=== PATIENT | male | born 1955 | race Caucasian/White ===

== ENCOUNTER 2020-06-04 09:10 | Day surgery (SDC) | payer MEDICARE, OTHER ==
[~2020-06-04 09:10] MED LIST: Cefuroxime 10 MG/ML SYRINGE EYELF SCH; Lidocaine 1% PF 2 ML SDV INJECT SCH; Pilocarpine 4% Ophth Soln 15 ML Bot EYELF SCH
[2020-06-04] MEDS: Polymyxin B/Trimethoprim 10 ML Bottle EYELF SCH ×3 (09:45→11:47)
[2020-06-04] MEDS: Brimonidine 0.2% Ophth Soln 5 ML Bottle EYELF SCH ×3 (09:51→11:47)
[2020-06-04] MEDS: Phenylephrine 2.5% Ophth Soln 15 ML Bot EYELF SCH ×5 (09:57→11:25)
[2020-06-04] MEDS: Tropicamide 1% Ophth Soln 15 ML Bottle EYELF SCH ×4 (10:00→10:59)
--- NOTE | 2020-06-04 10:20 | PCM.PREANE ---
Preanesthetic Assessment - Procedure Proposed Procedure: cataract with IOL left eye - Anesthesia/Transfusion/Family Hx Anesthesia History: Prior Anesthesia Without Reaction Family History of Anesthesia Reaction: No Transfusion History: No Prior Transfusion(s) - Review of Systems General: No Symptoms Pulmonary: No Symptoms Cardiovascular: Dyspnea on Exertion Gastrointestinal: No Symptoms Neurological: No Symptoms Other: Reports: None - Physical Assessment NPO Status Date: 06/03/20 NPO Status Time: 00:00 Height: 1.75 m Weight: 108.409 kg ASA Class: 3 Mental Status: Alert & Oriented x3 Airway Class: Mallampati = 2 Dentition: Reports: Dentures Thyro-Mental Finger Breadths: 1 Mouth Opening Finger Breadths: 2 ROM/Head Extension: Full Lungs: Clear to Auscultation, Normal Respiratory Effort Cardiovascular: Regular Rate, Regular Rhythm - Allergies Allergies/Adverse Reactions: Allergies Allergy/AdvReac Type Severity Reaction Status Date / Time No Known Allergies Allergy Verified 11/13/18 07:47 - Blood Blood Available: No Product(s) Available: None - Anesthesia Plan Pre-Op Medication Ordered: None - Acknowledgements Anesthesia Type Planned: MAC Pt an Appropriate Candidate for the Planned Anesthesia: Yes Alternatives and Risks of Anesthesia Discussed w Pt/Guardian: Yes Pt/Guardian Understands and Agrees with Anesthesia Plan: Yes PreAnesthesia Questionnaire - HOME MEDS Home Medications: Home Meds Carboxymethylcellulose Sodium [Artificial Tears] 1 dose EYEBOTH ASDIRECTED PRN 06/03/20 [History] Hydrochlorothiazide/Lisinopril [Lisinopril/HCTZ 20-12.5 MG] 1 tab PO DAILY 06/03/20 [History] Rosuvastatin Calcium 10 mg PO DAILY 06/03/20 [History] - CURRENT (IN HOUSE) MEDS Current Meds: Current Medications Brimonidine Tartrate (Alphagan 0.2% Ophth Soln) 0 ml EYELF ASDIRECTED SUSHIL Stop: 06/04/20 23:00 Last Admin: 06/04/20 09:51 Dose: 1 drop Documented by: Cefuroxime Sodium (Zinacef) 0 mg EYELF ASDIRECTED SUSHIL Stop: 06/04/20 23:00 Lidocaine HCl (Xylocaine-Mpf 1%) 0 ml INJECT ASDIRECTED SUSHIL Stop: 06/04/20 23:00 Phenylephrine HCl (Kenneth-Synephrine 2.5% Ophth Soln) 0 ml EYELF ASDIRECTED SUSHIL Stop: 06/04/20 23:00 Last Admin: 06/04/20 10:08 Dose: 1 drop Documented by: Pilocarpine HCl (Pilocar 4% Ophth Soln) 0 ml EYELF ASDIRECTED SUSHIL Stop: 06/04/20 23:00 Polymyxin/Trimethoprim Sulfate (Polytrim Ophth Soln) 0 ml EYELF ASDIRECTED SUSHIL Stop: 06/04/20 23:00 Last Admin: 06/04/20 09:45 Dose: 1 drop Documented by: Tetracaine HCl (Tetracaine 0.5% Steri-Unit Aurelia) 0 ml EYEBOTH ASDIRECTED SUSHIL Stop: 06/04/20 23:00 Tropicamide (Mydriacyl 1% Ophth Soln) 0 ml EYELF ASDIRECTED SUSHIL Stop: 06/04/20 23:00 Last Admin: 06/04/20 10:13 Dose: 1 drop Documented by:
[2020-06-04] MEDS: Tetracaine HCl/PF 0.5% 4 ML Bottle EYEBOTH SCH ×4 (11:05→11:35)
--- NOTE | 2020-06-04 11:37 | PCM48HPAN ---
Post Anesthesia Note - EVALUATION WITHIN 48HRS OF ANESTHETIC Vital Signs in Normal Range: Yes Patient Participated in Evaluation: Yes Respiratory Function Stable: Yes Airway Patent: Yes Cardiovascular Function Stable: Yes Hydration Status Stable: Yes Pain Control Satisfactory: Yes Nausea and Vomiting Control Satisfactory: Yes Mental Status Recovered: Yes Vital Signs: Last Vital Signs Temp 36.9 C 06/04/20 09:35 Pulse 71 06/04/20 09:35 Resp 16 06/04/20 09:35 BP 162/84 H 06/04/20 09:35 Pulse Ox 96 06/04/20 09:35
== END 2020-06-04 12:00 | disposition home or self-care (01) ==
LOC: JD.SDS 09:10
PROVIDERS: ATTEND Ophthalmology
DX: H25.813 Combined forms of age-related cataract, bilateral (principal); H40.003 Preglaucoma, unspecified, bilateral; H16.103 Unspecified superficial keratitis, bilateral; H16.223 Keratoconjunctivitis sicca, not specified as Sjogren's, bilateral; H02.831 Dermatochalasis of right upper eyelid; H02.834 Dermatochalasis of left upper eyelid; E78.00 Pure hypercholesterolemia, unspecified; I10 Essential (primary) hypertension; Z87.891 Personal history of nicotine dependence; Z79.899 Other long term (current) drug therapy
CPT/HCPCS: 66984; J0697; J2001; V2632

== ENCOUNTER 2020-07-16 08:24 | Day surgery (SDC) | payer MEDICARE, OTHER ==
[~2020-07-16 08:24] MED LIST changes: -Cefuroxime 10 MG/ML SYRINGE EYELF SCH; +Cefuroxime 10 MG/ML SYRINGE EYERT SCH; +Phenylephrine 2.5% Ophth Soln 15 ML Bot EYERT SCH; +Phenylephrine 2.5% Ophth Soln 2 ML Bot EYERT SCH; -Pilocarpine 4% Ophth Soln 15 ML Bot EYELF SCH; +Pilocarpine 4% Ophth Soln 15 ML Bot EYERT SCH
[2020-07-16] MEDS: Polymyxin B/Trimethoprim 10 ML Bottle EYERT SCH ×3 (08:53→10:40)
[2020-07-16] MEDS: Brimonidine 0.2% Ophth Soln 5 ML Bottle EYERT SCH ×3 (08:58→10:40)
[2020-07-16] MEDS: Tropicamide 1% Ophth Soln 15 ML Bottle EYERT SCH ×5 (09:01→10:01)
[2020-07-16] MEDS: Phenylephrine 2.5% Ophth Soln 15 ML Bot EYERT SCH ×4 (09:07→09:55)
--- NOTE | 2020-07-16 09:58 | PCM.PREANE ---
Preanesthetic Assessment - Procedure Proposed Procedure: Right Eye Cataract Extraction with IOL - Anesthesia/Transfusion/Family Hx Anesthesia History: Prior Anesthesia Without Reaction Family History of Anesthesia Reaction: No Transfusion History: No Prior Transfusion(s) - Review of Systems General: No Symptoms Pulmonary: No Symptoms Cardiovascular: Other (hypertension) Gastrointestinal: No Symptoms Neurological: No Symptoms Other: Reports: None (obesity) - Physical Assessment NPO Status Date: 07/15/20 NPO Status Time: 20:00 Vital Signs: Last Vital Signs Temp 37.2 C 07/16/20 08:40 Pulse 78 07/16/20 08:40 Resp 20 07/16/20 08:40 BP 159/69 H 07/16/20 08:40 Pulse Ox 96 07/16/20 08:40 Height: 1.75 m Weight: 108.862 kg ASA Class: 2 Mental Status: Alert & Oriented x3 Airway Class: Mallampati = 2 Dentition: Reports: Dentures Thyro-Mental Finger Breadths: 2 Mouth Opening Finger Breadths: 3 ROM/Head Extension: Full Lungs: Clear to Auscultation, Normal Respiratory Effort Cardiovascular: Regular Rate, Regular Rhythm - Allergies Allergies/Adverse Reactions: Allergies Allergy/AdvReac Type Severity Reaction Status Date / Time No Known Allergies Allergy Verified 07/15/20 10:08 - Acknowledgements Anesthesia Type Planned: MAC Pt an Appropriate Candidate for the Planned Anesthesia: Yes Alternatives and Risks of Anesthesia Discussed w Pt/Guardian: Yes Pt/Guardian Understands and Agrees with Anesthesia Plan: Yes Additional Comments: Previous cataract surgery Dany was comfortable and has no concerns today. PreAnesthesia Questionnaire - HOME MEDS Home Medications: Home Meds Carboxymethylcellulose Sodium [Artificial Tears] 1 dose EYEBOTH ASDIRECTED PRN 06/03/20 [History] Hydrochlorothiazide/Lisinopril [Lisinopril/HCTZ 20-12.5 MG] 1 tab PO DAILY 06/03/20 [History] Rosuvastatin Calcium 10 mg PO DAILY 06/03/20 [History] - CURRENT (IN HOUSE) MEDS Current Meds: Current Medications Brimonidine Tartrate (Alphagan 0.2% Ophth Soln) 0 ml EYERT ASDIRECTED SUSHIL Stop: 07/16/20 18:00 Last Admin: 07/16/20 09:51 Dose: 1 drop Documented by: Cefuroxime Sodium (Zinacef) 0 mg EYERT ASDIRECTED SUSHIL Stop: 07/16/20 18:00 Lidocaine HCl (Xylocaine-Mpf 1%) 0 ml INJECT ASDIRECTED SUSHIL Stop: 07/16/20 18:00 Phenylephrine HCl (Kenneth-Synephrine 2.5% Ophth Soln) 0 ml EYERT ASDIRECTED SUSHIL Stop: 07/16/20 18:00 Last Admin: 07/16/20 09:55 Dose: 1 drop Documented by: Pilocarpine HCl (Pilocar 4% Ophth Soln) 0 ml EYERT ASDIRECTED [facility] Stop: 07/16/20 18:00 Polymyxin/Trimethoprim Sulfate (Polytrim Ophth Soln) 0 ml EYERT ASDIRECTED SUSHIL Stop: 07/16/20 18:00 Last Admin: 07/16/20 09:43 Dose: 1 drop Documented by: Tetracaine HCl (Tetracaine 0.5% Steri-Unit Aurelia) 0 ml EYEBOTH ASDIRECTED [facility] Stop: 07/16/20 18:00 Tropicamide (Mydriacyl 1% Ophth Soln) 0 ml EYERT ASDIRECTED [facility] Stop: 07/16/20 18:00 Last Admin: 07/16/20 09:36 Dose: 1 drop Documented by: Discontinued Medications Phenylephrine HCl (Kenneth-Synephrine 2.5% Ophth Soln) 0 ml EYERT ASDIRECTED [facility] Stop: 07/16/20 18:00 Phenylephrine HCl (Kenneth-Synephrine 2.5% Ophth Soln) 0 ml EYERT ASDIRECTED [facility]
[2020-07-16] MEDS: Tetracaine HCl/PF 0.5% 4 ML Bottle EYEBOTH SCH ×4 (10:06→10:28)
--- NOTE | 2020-07-16 10:43 | PCM48HPAN ---
Post Anesthesia Note - EVALUATION WITHIN 48HRS OF ANESTHETIC Vital Signs in Normal Range: Yes Patient Participated in Evaluation: Yes Respiratory Function Stable: Yes Airway Patent: Yes Cardiovascular Function Stable: Yes Hydration Status Stable: Yes Pain Control Satisfactory: Yes Nausea and Vomiting Control Satisfactory: Yes Mental Status Recovered: Yes Vital Signs: Last Vital Signs Temp 37.2 C 07/16/20 08:40 Pulse 78 07/16/20 08:40 Resp 20 07/16/20 08:40 BP 159/69 H 07/16/20 08:40 Pulse Ox 96 07/16/20 08:40
== END 2020-07-16 10:51 | disposition home or self-care (01) ==
LOC: JD.SDS 08:24
PROVIDERS: ATTEND Ophthalmology
DX: H25.811 Combined forms of age-related cataract, right eye (principal); E78.00 Pure hypercholesterolemia, unspecified; I10 Essential (primary) hypertension; Z90.49 Acquired absence of other specified parts of digestive tract; Z87.891 Personal history of nicotine dependence
CPT/HCPCS: 66984; J0697; J2001; V2632